=== PATIENT | female | born 1985 | race Caucasian/White ===

== ENCOUNTER → 2018-12-24 | Outpatient (CLI) | payer OTHER ==
--- NOTE | 2018-12-24 17:58 | RAD ---
Examination: PREG MORE THAN OR EQ TO 14 WKS History: Uterine size and dates discrepancy Comparison/Correlation: None Findings: Single living intrauterine gestation is present. heart rate of 153 bpm is present. Posteriorly located grade 1 placenta is present. motion including cardiac motion identified. anatomy identified include: Four-chamber heart, three-vessel cord, cord insertion, fluid in the bladder, stomach, bilateral kidneys, spine, and brain. Maternal cervical length of 6.5 cm is noted. Biparietal diameter is 5.11 cm corresponding to 21 weeks 3 days. Head circumference is 18.75 cm corresponding to 21 weeks 0 days. Abdominal circumference is 16.9 cm corresponding to 21 weeks 6 days. Femur length is 3.7 cm corresponding to 21 weeks 6 days. Head circumference to abdominal circumference ratio is 1.11. Estimated weight is 452 g. Gestational age of 21 weeks 4 days noted. Sonographic EDC is 05/02/2019. Impression: Single living intrauterine gestation with average ultrasound age of 21 weeks 4 days. Electronically signed by: Jaylen Ferrer MD (12/24/2018 5:56 PM) [facility]
== END | disposition home or self-care (01) ==
LOC: US 14:26
PROVIDERS: ATTEND Obstetrics & Gynecology
DX: O26.842 Uterine size-date discrepancy, second trimester (principal); Z3A.21 21 weeks gestation of pregnancy
CPT/HCPCS: 76805

== ENCOUNTER → 2019-01-27 | Outpatient (CLI) | payer OTHER ==
[2019-01-27 11:26] LABS: BASO # 0.1 x10^3/uL (0.0-0.2); BASO % 1 % (0-3); EOS # 0.1 x10^3/uL (0.0-0.7); EOS % 1 % (0-3); HEMATOCRIT 36.9 % (36.0-47.0); HEMOGLOBIN 12.6 g/dL (12.0-15.5); LYMPH # 2.5 x10^3/uL (1.0-4.8); LYMPH % 22 % (24-48); MEAN CORPUSCULAR HEMOGLOBIN 32 pg (25-35); MEAN CORPUSCULAR HGB CONC 34 g/dL (31-37); MEAN CORPUSCULAR VOLUME 92 fL (79-100); MONO # 0.8 x10^3/uL (0.0-1.1); MONO % 7 % (0-9); NEUT # 8.2 x10^3/uL (1.8-7.7); NEUT % 70 % (31-73); PLATELET COUNT 175 x10^3/uL (140-400); RED BLOOD COUNT 3.99 x10^6/uL (3.50-5.40); RED CELL DISTRIBUTION WIDTH 13.2 % (11.5-14.5); WHITE BLOOD COUNT 11.7 x10^3/uL (4.0-11.0)
[2019-01-27 12:39] LABS: % BANDS 2 % (0-9); % EOS 1 % (0-5); % LYMPHS 23 % (24-48); % MONOS 4 % (0-10); % SEGS 70 % (35-66); PLT ESTIMATE ADEQUATE (ADEQUATE)
== END | disposition home or self-care (01) ==
LOC: LAB 10:12
PROVIDERS: ATTEND Obstetrics & Gynecology
DX: O09.90 Supervision of high risk pregnancy, unspecified, unspecified trimester (principal)
CPT/HCPCS: 36415; 82950; 85007; 85025

== ENCOUNTER → 2019-02-10 | Outpatient (CLI) | payer OTHER | END | disposition home or self-care (01) | LOC: LAB 09:23 | PROVIDERS: ATTEND Obstetrics & Gynecology | DX: O09.93 Supervision of high risk pregnancy, unspecified, third trimester (principal); Z3A.28 28 weeks gestation of pregnancy | CPT/HCPCS: 36415; 82947; 82950 ==

== ENCOUNTER → 2020-08-17 | Outpatient (CLI) | payer OTHER ==
--- NOTE | 2020-08-18 11:53 | KCIC ---
OB ULTRASOUND, > 14 WEEKS Clinical Indication: Reason: Uterine Size Date Discrepancy / Spl. Instructions: / History: Comparison: None. Technique: Multiple grayscale images, color Doppler, and M-mode images of the uterus are obtained. Findings: There is a single intrauterine gestation in variable presentation. The placenta is anterior in locati on without evidence of placenta previa. The amount of amniotic fluid appears appropriate. Amniotic f luid index is 10.2 cm. Cervical length is 5.8 cm. Biometrical data: BPD = 4.6 cm for 20 weeks 0 days. HC = 17.1 cm for 19 weeks 5 days. AC = 15.1 cm for 20 weeks 2 days. FL = 3.3 cm for 20 weeks 1 days. HC/AC ratio = 1.13. Overall, the estimated sonographic gestational age is 20 weeks and 0 days for an estimated date of of January 04, 2021. The estimated date of delivery provided by the last menstrual period is unknown. Estimated weight is 337 +/- 50 grams. A 4 chamber heart is identified with positive cardiac activity. The estimated heart rate is 143 beats per minute. Bilateral upper and lower extremities are identified. There is a three-vessel cord with cord insertion visualized. stomach and urinary bladder are identified. Both kidneys are seen. The spine and brain are unremarkable. No obvious anatomic abnormalities are identified. The maternal ovaries are not identified in the adnexa due to overlying bowel gas. Impression: Single live intrauterine gestation with estimated sonographic gestational age of 20 weeks and 0 days. Electronically signed by: Jeffery Patterson MD (08/18/2020 11:50 AM) [id number]
== END ==
LOC: KCIC US 14:36
PROVIDERS: ATTEND Obstetrics & Gynecology
DX: O26.842 Uterine size-date discrepancy, second trimester (principal); Z3A.20 20 weeks gestation of pregnancy
CPT/HCPCS: 76805